=== PATIENT | female | born 1930 | race Caucasian/White ===

== ENCOUNTER 2019-05-30 14:56 | Inpatient (IN) ==
[2019-05-30] MEDS ORDERED: FUROSEMIDE 40 MG/4 ML VIAL IV STA (16:15)
[2019-05-30 16:41] LABS: Basophils % 0.3 % (0.0-0.8); Eosinophils % 0.5 % (0.00-10.9); Hematocrit 45.3 VOL% (35.7-47.0); Hemoglobin 14.8 GM/DL (12.0-16.0); Immature Granulocytes % 0.5 %; Immature Granulocytes Absolute 0.04 #; Lymphocytes # 1.9 10*3/uL (1.4-4.0); Lymphocytes % 21.2 % (21.3-54.2); Mean Corpuscular HGB Conc 32.7 GM/DL (32-36); Mean Corpuscular Volume 91.5 FL (87-102); Mean Platelet Volume 11.4 FL (9.6-12.0); Monocytes % 7.7 % (1.7-12.7); Neutrophils % 69.8 % (38.7-73.9); Platelet Count 140 T/CUMM (130-400); Red Blood Count 4.95 MC/CUMM (3.8-5.5); Red Cell Distribution Width 14.5 % (9.3-17.3); White Blood Count 8.8 T/CUMM (4-12)
[2019-05-30 17:59] LABS: Albumin 3.2 G/DL (3.4-5.0); Bilirubin,Total 0.6 MG/DL (0.2-1.0); Calcium 8.8 MG/DL (8.5-10.1); Osmolality,Calculated 264.8 MOS/KG (273-304); Total Protein 7.6 G/DL (6.4-8.3)
[2019-05-30] MEDS: ENOXAPARIN 40 MG/0.4 ML SYRINGE SUBCUT SCH (21:56)
[2019-05-30] MEDS: traZODone 50 MG TABLET PO PRN (21:56)
[2019-05-30] MEDS: SIMVASTATIN 10 MG TABLET PO SCH (21:56)
[2019-05-31 05:42] LABS: Basophils % 0.4 % (0.0-0.8); Eosinophils # 0.1 10*3/uL (0.0-0.87); Eosinophils % 0.6 % (0.00-10.9); Hematocrit 40.6 VOL% (35.7-47.0); Hemoglobin 13.5 GM/DL (12.0-16.0); Immature Granulocytes % 0.3 %; Immature Granulocytes Absolute 0.03 #; Lymphocytes # 3.5 10*3/uL (1.4-4.0); Lymphocytes % 33.4 % (21.3-54.2); Mean Corpuscular HGB Conc 33.3 GM/DL (32-36); Mean Corpuscular Volume 89.4 FL (87-102); Mean Platelet Volume 11.4 FL (9.6-12.0); Monocytes % 11.9 % (1.7-12.7); Neutrophils % 53.4 % (38.7-73.9); Platelet Count 203 T/CUMM (130-400); Red Blood Count 4.54 MC/CUMM (3.8-5.5); Red Cell Distribution Width 14.5 % (9.3-17.3); White Blood Count 10.3 T/CUMM (4-12)
[2019-05-31 06:17] LABS: Calcium 8.7 MG/DL (8.5-10.1); Osmolality,Calculated 266.4 MOS/KG (273-304)
[2019-05-31] MEDS: TIMOLOL 0.5% OPH SOLN 5 ML BOTTLE BOTH EYES SCH (09:11)
[2019-05-31] MEDS: RALOXIFENE 60 MG TABLET PO SCH (09:11)
[2019-05-31] MEDS: VERAPAMIL SR 240 MG TABLET PO SCH (09:11)
[2019-05-31] MEDS: FUROSEMIDE 40 MG/4 ML VIAL IV SCH ×2 (09:11→22:18)
[2019-05-31] MEDS: ENOXAPARIN 40 MG/0.4 ML SYRINGE SUBCUT SCH (21:25)
[2019-05-31] MEDS: SIMVASTATIN 10 MG TABLET PO SCH (21:26)
[2019-06-01 05:12] LABS: Basophils # 0.1 10*3/uL (0.0-0.2); Basophils % 0.6 % (0.0-0.8); Eosinophils # 0.2 10*3/uL (0.0-0.87); Eosinophils % 1.9 % (0.00-10.9); Hematocrit 41.9 VOL% (35.7-47.0); Immature Granulocytes % 0.3 %; Immature Granulocytes Absolute 0.03 #; Lymphocytes # 3.3 10*3/uL (1.4-4.0); Lymphocytes % 31.9 % (21.3-54.2); Mean Corpuscular HGB Conc 33.4 GM/DL (32-36); Mean Corpuscular Volume 90.5 FL (87-102); Mean Platelet Volume 10.8 FL (9.6-12.0); Monocytes % 12.2 % (1.7-12.7); Neutrophils % 53.1 % (38.7-73.9); Platelet Count 188 T/CUMM (130-400); Red Blood Count 4.63 MC/CUMM (3.8-5.5); Red Cell Distribution Width 14.5 % (9.3-17.3); White Blood Count 10.5 T/CUMM (4-12)
[2019-06-01 05:39] LABS: Calcium 8.2 MG/DL (8.5-10.1); Osmolality,Calculated 271.4 MOS/KG (273-304)
[2019-06-01] MEDS: FUROSEMIDE 40 MG/4 ML VIAL IV SCH ×2 (09:41→21:27)
[2019-06-01] MEDS: VERAPAMIL SR 240 MG TABLET PO SCH (09:41)
[2019-06-01] MEDS: RALOXIFENE 60 MG TABLET PO SCH (09:42)
[2019-06-01] MEDS: TIMOLOL 0.5% OPH SOLN 5 ML BOTTLE BOTH EYES SCH (09:42)
[2019-06-01] MEDS: ENOXAPARIN 40 MG/0.4 ML SYRINGE SUBCUT SCH (21:31)
[2019-06-01] MEDS: SIMVASTATIN 10 MG TABLET PO SCH (21:31)
[2019-06-01] MEDS: traZODone 50 MG TABLET PO PRN (21:37)
[2019-06-02 05:29] LABS: Basophils # 0.1 10*3/uL (0.0-0.2); Basophils % 0.5 % (0.0-0.8); Eosinophils # 0.2 10*3/uL (0.0-0.87); Eosinophils % 2.1 % (0.00-10.9); Hematocrit 41.6 VOL% (35.7-47.0); Immature Granulocytes % 0.3 %; Immature Granulocytes Absolute 0.03 #; Lymphocytes # 3.2 10*3/uL (1.4-4.0); Lymphocytes % 29.6 % (21.3-54.2); Mean Corpuscular HGB Conc 33.7 GM/DL (32-36); Mean Corpuscular Volume 89.7 FL (87-102); Mean Platelet Volume 11.2 FL (9.6-12.0); Monocytes % 11.7 % (1.7-12.7); Neutrophils % 55.8 % (38.7-73.9); Platelet Count 184 T/CUMM (130-400); Red Blood Count 4.64 MC/CUMM (3.8-5.5); Red Cell Distribution Width 14.6 % (9.3-17.3); White Blood Count 10.7 T/CUMM (4-12)
[2019-06-02 05:53] LABS: Calcium 8.5 MG/DL (8.5-10.1); Osmolality,Calculated 276.1 MOS/KG (273-304)
[2019-06-02] MEDS: TIMOLOL 0.5% OPH SOLN 5 ML BOTTLE BOTH EYES SCH (08:56)
[2019-06-02] MEDS: FUROSEMIDE 40 MG/4 ML VIAL IV SCH ×2 (08:56→21:30)
[2019-06-02] MEDS: RALOXIFENE 60 MG TABLET PO SCH (08:57)
[2019-06-02] MEDS: VERAPAMIL SR 240 MG TABLET PO SCH (08:57)
[2019-06-02] MEDS: traZODone 50 MG TABLET PO PRN (21:29)
[2019-06-02] MEDS: SIMVASTATIN 10 MG TABLET PO SCH (21:30)
[2019-06-02] MEDS: ENOXAPARIN 40 MG/0.4 ML SYRINGE SUBCUT SCH (21:34)
[2019-06-03 04:40] LABS: Basophils # 0.1 10*3/uL (0.0-0.2); Basophils % 0.4 % (0.0-0.8); Eosinophils # 0.1 10*3/uL (0.0-0.87); Eosinophils % 1.1 % (0.00-10.9); Hematocrit 40.2 VOL% (35.7-47.0); Hemoglobin 13.4 GM/DL (12.0-16.0); Immature Granulocytes % 0.3 %; Immature Granulocytes Absolute 0.04 #; Lymphocytes # 3.4 10*3/uL (1.4-4.0); Lymphocytes % 29.5 % (21.3-54.2); Mean Corpuscular HGB Conc 33.3 GM/DL (32-36); Mean Corpuscular Volume 89.9 FL (87-102); Mean Platelet Volume 10.8 FL (9.6-12.0); Monocytes % 10.9 % (1.7-12.7); Neutrophils % 57.8 % (38.7-73.9); Platelet Count 187 T/CUMM (130-400); Red Blood Count 4.47 MC/CUMM (3.8-5.5); Red Cell Distribution Width 14.5 % (9.3-17.3); White Blood Count 11.5 T/CUMM (4-12)
[2019-06-03 04:42] LABS: Calcium 8.6 MG/DL (8.5-10.1); Osmolality,Calculated 284.8 MOS/KG (273-304)
[2019-06-03] MEDS: RALOXIFENE 60 MG TABLET PO SCH (09:16)
[2019-06-03] MEDS: FUROSEMIDE 40 MG/4 ML VIAL IV SCH (09:16)
[2019-06-03] MEDS: TIMOLOL 0.5% OPH SOLN 5 ML BOTTLE BOTH EYES SCH (09:16)
[2019-06-03] MEDS: VERAPAMIL SR 240 MG TABLET PO SCH (09:16)
[2019-06-03] MEDS: SPIRONOLACTONE 25 MG TABLET PO SCH (13:55)
[2019-06-03] MEDS: traZODone 50 MG TABLET PO PRN (21:27)
[2019-06-03] MEDS: SIMVASTATIN 10 MG TABLET PO SCH (21:27)
[2019-06-03] MEDS: ENOXAPARIN 40 MG/0.4 ML SYRINGE SUBCUT SCH (21:29)
[2019-06-04 05:07] LABS: Basophils # 0.1 10*3/uL (0.0-0.2); Basophils % 0.5 % (0.0-0.8); Eosinophils # 0.2 10*3/uL (0.0-0.87); Eosinophils % 1.5 % (0.00-10.9); Hematocrit 38.8 VOL% (35.7-47.0); Hemoglobin 12.9 GM/DL (12.0-16.0); Immature Granulocytes % 0.4 %; Immature Granulocytes Absolute 0.05 #; Lymphocytes # 3.3 10*3/uL (1.4-4.0); Lymphocytes % 28.5 % (21.3-54.2); Mean Corpuscular HGB Conc 33.2 GM/DL (32-36); Mean Corpuscular Volume 90.4 FL (87-102); Monocytes % 10.7 % (1.7-12.7); Neutrophils % 58.4 % (38.7-73.9); Platelet Count 164 T/CUMM (130-400); Red Blood Count 4.29 MC/CUMM (3.8-5.5); Red Cell Distribution Width 14.7 % (9.3-17.3); White Blood Count 11.6 T/CUMM (4-12)
[2019-06-04 05:25] LABS: Calcium 8.5 MG/DL (8.5-10.1); Osmolality,Calculated 286.7 MOS/KG (273-304)
[2019-06-04] MEDS: VERAPAMIL SR 240 MG TABLET PO SCH (09:19)
[2019-06-04] MEDS: RALOXIFENE 60 MG TABLET PO SCH (09:19)
[2019-06-04] MEDS: SPIRONOLACTONE 25 MG TABLET PO SCH (09:19)
[2019-06-04] MEDS: TIMOLOL 0.5% OPH SOLN 5 ML BOTTLE BOTH EYES SCH (09:20)
[2019-06-04] MEDS: FUROSEMIDE 40 MG TABLET PO SCH (09:20)
[2019-06-04] MEDS ORDERED: TUBERCULIN SKIN TEST 0.1 ML SYRINGE INTRADERM ONE (14:01)
[2019-06-04] MEDS: ENOXAPARIN 40 MG/0.4 ML SYRINGE SUBCUT SCH (21:50)
[2019-06-04] MEDS: traZODone 50 MG TABLET PO PRN (21:50)
[2019-06-04] MEDS: SIMVASTATIN 10 MG TABLET PO SCH (21:50)
[2019-06-05 05:04] LABS: Basophils # 0.1 10*3/uL (0.0-0.2); Basophils % 0.4 % (0.0-0.8); Eosinophils # 0.5 10*3/uL (0.0-0.87); Hematocrit 40.9 VOL% (35.7-47.0); Hemoglobin 13.6 GM/DL (12.0-16.0); Immature Granulocytes % 0.4 %; Immature Granulocytes Absolute 0.04 #; Lymphocytes % 26.6 % (21.3-54.2); Mean Corpuscular HGB Conc 33.3 GM/DL (32-36); Mean Corpuscular Volume 90.9 FL (87-102); Mean Platelet Volume 10.7 FL (9.6-12.0); Monocytes % 9.5 % (1.7-12.7); Neutrophils % 59.1 % (38.7-73.9); Platelet Count 158 T/CUMM (130-400); Red Cell Distribution Width 14.9 % (9.3-17.3); White Blood Count 11.4 T/CUMM (4-12)
[2019-06-05 05:42] LABS: Calcium 8.9 MG/DL (8.5-10.1); Osmolality,Calculated 288.5 MOS/KG (273-304)
[2019-06-05] MEDS: TIMOLOL 0.5% OPH SOLN 5 ML BOTTLE BOTH EYES SCH (08:01)
[2019-06-05] MEDS: SPIRONOLACTONE 25 MG TABLET PO SCH (08:01)
[2019-06-05] MEDS: FUROSEMIDE 40 MG TABLET PO SCH (08:01)
[2019-06-05] MEDS: VERAPAMIL SR 240 MG TABLET PO SCH (08:01)
[2019-06-05] MEDS: RALOXIFENE 60 MG TABLET PO SCH (08:01)
[2019-06-05] MEDS: diphenhydrAMINE CAP 25 MG CAPSULE PO PRN ×2 (08:11→21:02)
[2019-06-05] MEDS: LOSARTAN 25 MG TABLET PO SCH (10:00)
[2019-06-05] MEDS: SIMVASTATIN 10 MG TABLET PO SCH (20:59)
[2019-06-05] MEDS: ENOXAPARIN 40 MG/0.4 ML SYRINGE SUBCUT SCH (20:59)
[2019-06-06 04:16] LABS: Basophils # 0.1 10*3/uL (0.0-0.2); Basophils % 0.5 % (0.0-0.8); Eosinophils # 0.5 10*3/uL (0.0-0.87); Eosinophils % 4.9 % (0.00-10.9); Hematocrit 40.8 VOL% (35.7-47.0); Hemoglobin 13.3 GM/DL (12.0-16.0); Immature Granulocytes % 0.4 %; Immature Granulocytes Absolute 0.04 #; Lymphocytes # 2.6 10*3/uL (1.4-4.0); Lymphocytes % 23.8 % (21.3-54.2); Mean Corpuscular HGB Conc 32.6 GM/DL (32-36); Mean Corpuscular Volume 92.1 FL (87-102); Mean Platelet Volume 11.5 FL (9.6-12.0); Monocytes % 10.9 % (1.7-12.7); Neutrophils % 59.5 % (38.7-73.9); Platelet Count 161 T/CUMM (130-400); Red Blood Count 4.43 MC/CUMM (3.8-5.5); White Blood Count 11.1 T/CUMM (4-12)
[2019-06-06 04:43] LABS: Calcium 8.7 MG/DL (8.5-10.1); Osmolality,Calculated 289.7 MOS/KG (273-304)
[2019-06-06] MEDS: VERAPAMIL SR 240 MG TABLET PO SCH (08:35)
[2019-06-06] MEDS: SPIRONOLACTONE 25 MG TABLET PO SCH (08:36)
[2019-06-06] MEDS: FUROSEMIDE 40 MG TABLET PO SCH (08:36)
[2019-06-06] MEDS: LOSARTAN 25 MG TABLET PO SCH (08:36)
[2019-06-06] MEDS: RALOXIFENE 60 MG TABLET PO SCH (08:36)
[2019-06-06] MEDS: TIMOLOL 0.5% OPH SOLN 5 ML BOTTLE BOTH EYES SCH (08:36)
[2019-06-06] MEDS: metOLazone 2.5 MG TABLET PO SCH (12:13)
[2019-06-06] MEDS: MENTHOL/ZINC OXIDE OINT 71 GM JAR TOP SCH ×2 (14:25→20:49)
[2019-06-06] MEDS: NYSTATIN CREAM 15 GM TUBE TOP SCH ×2 (14:26→20:47)
[2019-06-06] MEDS: SIMVASTATIN 10 MG TABLET PO SCH (20:44)
[2019-06-06] MEDS: traZODone 50 MG TABLET PO PRN (20:44)
[2019-06-06] MEDS: ENOXAPARIN 40 MG/0.4 ML SYRINGE SUBCUT SCH (20:45)
[2019-06-07 05:30] LABS: Basophils # 0.1 10*3/uL (0.0-0.2); Basophils % 0.4 % (0.0-0.8); Eosinophils # 0.4 10*3/uL (0.0-0.87); Hematocrit 42.5 VOL% (35.7-47.0); Hemoglobin 13.6 GM/DL (12.0-16.0); Immature Granulocytes % 0.5 %; Immature Granulocytes Absolute 0.06 #; Lymphocytes # 3.4 10*3/uL (1.4-4.0); Lymphocytes % 28.3 % (21.3-54.2); Mean Corpuscular Volume 92.8 FL (87-102); Mean Platelet Volume 11.9 FL (9.6-12.0); Monocytes % 10.8 % (1.7-12.7); Platelet Count 171 T/CUMM (130-400); Red Blood Count 4.58 MC/CUMM (3.8-5.5); Red Cell Distribution Width 14.8 % (9.3-17.3)
[2019-06-07 06:05] LABS: Osmolality,Calculated 294.5 MOS/KG (273-304)
[2019-06-07] MEDS: RALOXIFENE 60 MG TABLET PO SCH (09:09)
[2019-06-07] MEDS: SPIRONOLACTONE 25 MG TABLET PO SCH (09:09)
[2019-06-07] MEDS: LOSARTAN 25 MG TABLET PO SCH (09:09)
[2019-06-07] MEDS: metOLazone 2.5 MG TABLET PO SCH (09:09)
[2019-06-07] MEDS: VERAPAMIL SR 240 MG TABLET PO SCH (09:09)
[2019-06-07] MEDS: TIMOLOL 0.5% OPH SOLN 5 ML BOTTLE BOTH EYES SCH (09:09)
[2019-06-07] MEDS: MENTHOL/ZINC OXIDE OINT 71 GM JAR TOP SCH ×2 (09:10→21:13)
[2019-06-07] MEDS: NYSTATIN CREAM 15 GM TUBE TOP SCH ×2 (09:10→21:11)
[2019-06-07] MEDS: SIMVASTATIN 10 MG TABLET PO SCH (21:09)
[2019-06-07] MEDS: traZODone 50 MG TABLET PO PRN (21:09)
[2019-06-07] MEDS: ENOXAPARIN 40 MG/0.4 ML SYRINGE SUBCUT SCH (21:10)
[2019-06-08] MEDS: TIMOLOL 0.5% OPH SOLN 5 ML BOTTLE BOTH EYES SCH (09:10)
[2019-06-08] MEDS: MENTHOL/ZINC OXIDE OINT 71 GM JAR TOP SCH (09:10)
[2019-06-08] MEDS: RALOXIFENE 60 MG TABLET PO SCH (09:10)
[2019-06-08] MEDS: metOLazone 2.5 MG TABLET PO SCH (09:10)
[2019-06-08] MEDS: VERAPAMIL SR 240 MG TABLET PO SCH (09:10)
[2019-06-08] MEDS: LOSARTAN 25 MG TABLET PO SCH (09:10)
[2019-06-08] MEDS: NYSTATIN CREAM 15 GM TUBE TOP SCH (09:10)
[2019-06-08] MEDS: SPIRONOLACTONE 25 MG TABLET PO SCH (09:10)
[2019-06-08] MEDS ORDERED: INFLUENZA VIRUS VACCINE 0.5 ML SYRINGE IM ONE (11:33)
[2019-06-08 12:28] VITALS: BP 132/64
== END 2019-06-08 12:40 | DRG 292 ==
LOC: EDBD → EDUNIT# → N.EDINP 14:56 → N.ED 14:56 → SUATTDRO 19:13 → N.TELES 19:53
PROVIDERS: ADMIT Internal Medicine; ATTEND Family Medicine

== ENCOUNTER 2019-06-18 20:53 | Inpatient (IN) ==
[2019-06-18] MEDS ORDERED: ONDANSETRON 4 MG/2 ML VIAL IV STA (21:07)
[2019-06-18] MEDS ORDERED: SODIUM CHLORIDE 0.9% 1,000 ML IV STA (21:07)
[2019-06-18] MEDS ORDERED: MORPHINE 4 MG/1 ML VIAL IV STA (21:07)
[2019-06-18 22:18] LABS: Basophils % 0.3 % (0.0-0.8); Hematocrit 41.1 VOL% (35.7-47.0); Hemoglobin 13.3 GM/DL (12.0-16.0); Immature Granulocytes % 0.8 %; Immature Granulocytes Absolute 0.13 #; Lymphocytes # 1.5 10*3/uL (1.4-4.0); Lymphocytes % 9.5 % (21.3-54.2); Mean Corpuscular HGB Conc 32.4 GM/DL (32-36); Mean Corpuscular Volume 92.8 FL (87-102); Monocytes % 5.9 % (1.7-12.7); Neutrophils % 83.5 % (38.7-73.9); Platelet Count 225 T/CUMM (130-400); Red Blood Count 4.43 MC/CUMM (3.8-5.5); Red Cell Distribution Width 14.8 % (9.3-17.3); White Blood Count 15.7 T/CUMM (4-12)
[2019-06-18 22:35] LABS: Albumin 2.6 G/DL (3.4-5.0); Bilirubin,Total 0.4 MG/DL (0.2-1.0); Calcium 8.7 MG/DL (8.5-10.1); Osmolality,Calculated 299.7 MOS/KG (273-304); Total Protein 6.7 G/DL (6.4-8.3)
[2019-06-19] MEDS ORDERED: LEVOFLOXACIN INJ 500 MG in PREMIX 1 EACH IV STA (00:38)
[2019-06-19] MEDS ORDERED: VANCOMYCIN INJ 1,000 MG in SODIUM CHLORIDE 0.9% 250 ML IV PRN ×2 (02:46→09:00)
[2019-06-19 02:58] LABS: Apearance,Urine Slightly Hazy (Clear); Bacteria,Urine Few /HPF (Few); Bilirubin,Urine Negative (Negative); Blood, Urine Small mg/dL (Negative); Glucose,Urine (UA) Negative (Negative); Hyaline Casts,Urine 37 /LPF (0-3); Ketones,Urine Negative (Negative); Mucus,Urine Occasional /LPF (Occasional); Nitrite,Urine Negative (Negative); Protein,Urine Negative; RBC,Urine 2 /HPF (0-4); Squamous Epithelial Cell,Urine Occasional /HPF (0-10); Urine Color Yellow (Yellow); Urine Specific Gravity 1.016 (1.001-1.035); Urine Urobilinogen < 2.0 EU/DL (0.2-1.0); WBC,Urine <1 /HPF (0-6)
[2019-06-19] MEDS ORDERED: MORPHINE 4 MG/1 ML VIAL IV SCH (04:15)
[2019-06-19] MEDS ORDERED: MORPHINE 4 MG/1 ML VIAL IV PRN (04:24)
[2019-06-19] MEDS: LACTATED RINGERS 1,000 ML IV SCH ×2 (04:55→10:38)
[2019-06-19 05:41] LABS: Basophils % 0.1 % (0.0-0.8); Eosinophils % 0.1 % (0.00-10.9); Immature Granulocytes % 0.7 %; Immature Granulocytes Absolute 0.09 #; Lymphocytes # 1.8 10*3/uL (1.4-4.0); Lymphocytes % 13.4 % (21.3-54.2); Mean Corpuscular HGB Conc 33.3 GM/DL (32-36); Mean Corpuscular Volume 91.1 FL (87-102); Mean Platelet Volume 11.3 FL (9.6-12.0); Monocytes % 7.8 % (1.7-12.7); Neutrophils % 77.9 % (38.7-73.9); Platelet Count 205 T/CUMM (130-400); Red Blood Count 3.95 MC/CUMM (3.8-5.5); White Blood Count 13.4 T/CUMM (4-12)
[2019-06-19] MEDS ORDERED: VANCOMYCIN INJ 1,750 MG in SODIUM CHLORIDE 0.9% 500 ML IV ONE (06:00)
[2019-06-19 06:27] LABS: Calcium 8.7 MG/DL (8.5-10.1); Osmolality,Calculated 300.5 MOS/KG (273-304); Thyroid Stimulating Hormone 2.92 uIU/ml (0.358-3.74)
[2019-06-19] MEDS: VERAPAMIL SR 240 MG TABLET PO SCH (08:24)
[2019-06-19] MEDS: RALOXIFENE 60 MG TABLET PO SCH (08:24)
[2019-06-19] MEDS: TIMOLOL 0.5% OPH SOLN 5 ML BOTTLE BOTH EYES SCH (08:25)
[2019-06-19] MEDS: CEFEPIME 1,000 MG in SODIUM CHLORIDE 0.9% 100 ML IV SCH ×2 (08:25→20:15)
[2019-06-19] MEDS ORDERED: ENOXAPARIN 30 MG/0.3 ML SYRINGE SUBCUT SCH (09:00)
[2019-06-19] MEDS ORDERED: LOSARTAN 25 MG TABLET PO SCH (09:00)
[2019-06-19 09:02] LABS: INR 1.1; PT Patient Result 11.4 SECS (9.6-12.2)
[2019-06-19 09:18] LABS: Albumin 2.1 G/DL (3.4-5.0); Total Protein 6.7 G/DL (6.4-8.3)
[2019-06-19] MEDS ORDERED: VANCOMYCIN INJ 750 MG in SODIUM CHLORIDE 0.9% 250 ML IV ONE (10:00)
[2019-06-19] MEDS ORDERED: TUBERCULIN SKIN TEST 0.1 ML SYRINGE INTRADERM ONE (10:58)
[2019-06-19] MEDS: MENTHOL/ZINC OXIDE OINT 71 GM JAR TOP SCH (13:20)
[2019-06-19] MEDS: traZODone 50 MG TABLET PO SCH (20:15)
[2019-06-19] MEDS: SIMVASTATIN 10 MG TABLET PO SCH (20:16)
[2019-06-20 06:18] LABS: Basophils % 0.3 % (0.0-0.8); Eosinophils # 0.1 10*3/uL (0.0-0.87); Eosinophils % 0.8 % (0.00-10.9); Hematocrit 35.7 VOL% (35.7-47.0); Hemoglobin 11.5 GM/DL (12.0-16.0); Immature Granulocytes % 0.5 %; Immature Granulocytes Absolute 0.06 #; Lymphocytes # 3.4 10*3/uL (1.4-4.0); Lymphocytes % 25.9 % (21.3-54.2); Mean Corpuscular HGB Conc 32.2 GM/DL (32-36); Mean Corpuscular Volume 93.7 FL (87-102); Mean Platelet Volume 11.4 FL (9.6-12.0); Monocytes % 9.1 % (1.7-12.7); Neutrophils % 63.4 % (38.7-73.9); Platelet Count 181 T/CUMM (130-400); Red Blood Count 3.81 MC/CUMM (3.8-5.5); Red Cell Distribution Width 15.4 % (9.3-17.3)
[2019-06-20 06:31] LABS: Calcium 8.8 MG/DL (8.5-10.1); Osmolality,Calculated 291.8 MOS/KG (273-304)
[2019-06-20] MEDS ORDERED: SODIUM POLYSTYRENE SULFATE 15 GM/60 ML BOTTLE PO STA (07:27)
[2019-06-20] MEDS: RALOXIFENE 60 MG TABLET PO SCH (08:34)
[2019-06-20] MEDS: VERAPAMIL SR 240 MG TABLET PO SCH (08:34)
[2019-06-20] MEDS: MENTHOL/ZINC OXIDE OINT 71 GM JAR TOP SCH (08:40)
[2019-06-20] MEDS: TIMOLOL 0.5% OPH SOLN 5 ML BOTTLE BOTH EYES SCH (08:41)
[2019-06-20 10:13] LABS: Lymphocytes,Pleural Fluid 69 %; Monocytes,Pleural Fluid 7 %; Neutrophils,Pleural Fluid 24 %
[2019-06-20 10:16] LABS: RBC,Pleural Fluid 1471 T/CUMM
[2019-06-20] MEDS: CEFEPIME 1,000 MG in SODIUM CHLORIDE 0.9% 100 ML IV SCH (10:30)
[2019-06-20] MEDS: SIMVASTATIN 10 MG TABLET PO SCH (21:58)
[2019-06-20] MEDS: traZODone 50 MG TABLET PO SCH (21:58)
[2019-06-20] MEDS ORDERED: CEFEPIME 1,000 MG in SODIUM CHLORIDE 0.9% 100 ML IV SCH (22:30)
[2019-06-21 07:46] LABS: Basophils % 0.4 % (0.0-0.8); Eosinophils # 0.2 10*3/uL (0.0-0.87); Eosinophils % 1.8 % (0.00-10.9); Hematocrit 36.5 VOL% (35.7-47.0); Hemoglobin 11.6 GM/DL (12.0-16.0); Immature Granulocytes % 0.4 %; Immature Granulocytes Absolute 0.04 #; Lymphocytes # 2.2 10*3/uL (1.4-4.0); Lymphocytes % 20.7 % (21.3-54.2); Mean Corpuscular HGB Conc 31.8 GM/DL (32-36); Mean Corpuscular Volume 95.3 FL (87-102); Mean Platelet Volume 11.5 FL (9.6-12.0); Neutrophils % 69.7 % (38.7-73.9); Platelet Count 189 T/CUMM (130-400); Red Blood Count 3.83 MC/CUMM (3.8-5.5); Red Cell Distribution Width 15.2 % (9.3-17.3); White Blood Count 10.4 T/CUMM (4-12)
[2019-06-21 07:56] LABS: Calcium 8.7 MG/DL (8.5-10.1); Osmolality,Calculated 287.7 MOS/KG (273-304)
[2019-06-21] MEDS: VERAPAMIL SR 240 MG TABLET PO SCH (08:29)
[2019-06-21] MEDS: LEVOFLOXACIN 500 MG TABLET PO SCH (08:29)
[2019-06-21] MEDS: RALOXIFENE 60 MG TABLET PO SCH (08:29)
[2019-06-21] MEDS: MENTHOL/ZINC OXIDE OINT 71 GM JAR TOP SCH (08:31)
[2019-06-21] MEDS: TIMOLOL 0.5% OPH SOLN 5 ML BOTTLE BOTH EYES SCH (08:32)
[2019-06-21] MEDS: SIMVASTATIN 10 MG TABLET PO SCH (20:11)
[2019-06-21] MEDS: traZODone 50 MG TABLET PO SCH (20:11)
[2019-06-22] MEDS: MENTHOL/ZINC OXIDE OINT 71 GM JAR TOP SCH (09:35)
[2019-06-22] MEDS: VERAPAMIL SR 240 MG TABLET PO SCH (09:51)
[2019-06-22] MEDS: LEVOFLOXACIN 500 MG TABLET PO SCH (09:51)
[2019-06-22] MEDS: RALOXIFENE 60 MG TABLET PO SCH (09:51)
[2019-06-22] MEDS: TIMOLOL 0.5% OPH SOLN 5 ML BOTTLE BOTH EYES SCH (09:52)
[2019-06-22 11:25] VITALS: BP 138/62
== END 2019-06-22 14:42 | DRG 641 ==
LOC: EDUNIT# → EDBD → N.ED 20:53 → SUATTDRO 06-19 02:17 → N.EDINP 06-19 02:17 → N.3E 06-19 02:38
PROVIDERS: ADMIT Internal Medicine Critical Care Medicine; ATTEND Internal Medicine